=== PATIENT | female | born 1960 | race Caucasian/White ===

== ENCOUNTER → 2017-03-20 | Outpatient (REF) | payer OTHER ==
[2017-03-20 19:53] LABS: COMPLEMENT C4 34.9 MG/DL (10-40)
== END ==
LOC: M LABDRAW1 14:17
PROVIDERS: ATTEND Internal Medicine Rheumatology
DX: M35.9 Systemic involvement of connective tissue, unspecified (principal); R53.83 Other fatigue; Z79.899 Other long term (current) drug therapy